=== PATIENT | male | born 1960 | race Caucasian/White ===

== ENCOUNTER 2024-03-17 18:33 | Emergency (ER) | payer MEDICARE, MEDICAID ==
[~2024-03-17] VITALS: Ht 175.3 cm; Wt 63.0 kg
[~2024-03-17 18:33] MED LIST: ACETAMINOPHEN500 MG PO; ATROPINE SU1 MG/1 M1 SUB-Q; DEXAMETHASO4 MG/1 ML IV; DILAUDID2 MG PO; EMEND150 MG IV; FLUOROURAC5 GM/100 M IV; HYDROCODON-ACE1 EA10 PO; IBUPROFEN600 MG PO; IRINOTECAN100 MG/5 M IV; LEUCOVORIN CAL200 MG IV; LIDODERM1 EACH TOP; MULTI VITAMIN1 EACH PO; MVASI25 MG/1 ML IV; OSTERA TABLET1 EACH PO; OXYCODON-ACETA1 EAC2 PO; STOOL SOFTENER100 MG PO; [UNRECOGNIZED DRUG - OTHER] IV
[2024-03-17] MEDS ORDERED: HYDROmorphone HCL 1 MG/ML SYR IV PRN (20:30)
[2024-03-17] MEDS ORDERED: ondansetron HCL 4 MG/2 ML VIAL IV ONE (20:30)
[2024-03-17] MEDS ORDERED: LACTATED RINGER'S 1,000 ML IV SCH (20:30)
[2024-03-17 20:46] LABS: BASOPHILS 0.5 % (0-2); HEMATOCRIT 31.8 % (35.0-50.0); HEMOGLOBIN 10.7 g/dL (12.0-18.0); MCH 31.6 (27-36); MCHC 33.7 g/dl (30-36); MCV 93.6 fl (81-99); MONOCYTES 7.8 % (0-12); NEUTROPHILS 86.7 % (39-80); PLATELET COUNT 239 K/uL (140-440); RBC 3.39 M/ul (4.3-5.7)
[2024-03-17 21:02] LABS: ALBUMIN/GLOBULIN RATIO 0.79 (1.1-2.4); ANION GAP 12.2 (7-21); BILIRUBIN, TOTAL 0.7 ng/dL (0.2-1.0); BUN/CREATININE RATIO 15.55 (6.0-28.6); CALCIUM 9.1 mg/dL (8.5-10.1); CREATININE, SERUM 0.9 mg/dL (0.70-1.30); POTASSIUM 4.2 mmol/L (3.5-5.1); PROTEIN, TOTAL 6.8 g/dL (6.4-8.2)
[2024-03-17 22:17] LABS: BILIRUBIN, URINE NEGATIVE (negative); BLOOD/HGB, URINE SMALL (Negative); KETONE, URINE NEGATIVE (Negative); LEUK ESTERASE, URINE NEGATIVE (negative); NITRITE, URINE NEGATIVE (negative); PH, URINE 6.5 (5-7)
[2024-03-17 22:25] LABS: EPITHELIAL CELLS, URINE SQUAMOUS 1+ /lpf (0-1+)
[2024-03-17 22:26] LABS: BACTERIA, URINE RARE /hpf (negative); CASTS, URINE NONE SEEN \\lpf; COLLECTION TYPE, URINE CLEAN CATCH; CRYSTALS, URINE NONE SEEN (0-1+); RED BLOOD CELLS, URINE 21-40 /hpf (0-5); REFLEX CULTURE, URINE No (No); WHITE BLOOD CELLS, URINE 0-1 /HPF (0-5)
[2024-03-17] MEDS ORDERED: OXYCODONE HCL5 MG PO (22:41)
[2024-03-17] MEDS ORDERED: OXYCODONE/ACETAMINOPHEN 1 TAB HOME.PACK PO ONE (22:45)
[2024-03-17 22:54] VITALS: BP 90/59
== END 2024-03-17 23:00 | disposition home or self-care (01) ==
LOC: ED 18:33
PROVIDERS: Internal Medicine
DX: G89.3 Neoplasm related pain (acute) (chronic) (principal); R10.11 Right upper quadrant pain; C61 Malignant neoplasm of prostate; C78.5 Secondary malignant neoplasm of large intestine and rectum; Z79.899 Other long term (current) drug therapy
CPT/HCPCS: 36415; 71045; 74177; 80053; 81001; 82553; 85025; 96375; 99284-25; J1170; J2405; J7121; Q9967

== ENCOUNTER 2024-11-16 11:34 | Emergency (ER) | payer MEDICARE, MEDICAID ==
[~2024-11-16] VITALS: Ht 175.3 cm; Wt 61.6 kg
[~2024-11-16 11:34] MED LIST changes: +FENTANYL1 EACH TD; +OXYCODONE HCL5 MG PO; +PANTOPRAZOLE SO40 MG PO
[2024-11-16] MEDS ORDERED: fentaNYL citrate 100 MCG/2 ML VIAL IM ONE (12:30)
[2024-11-16] MEDS ORDERED: SODIUM CHLORIDE 0.9% 1,000 ML IV PRN (13:15)
[2024-11-16] MEDS ORDERED: fentaNYL citrate 100 MCG/2 ML VIAL IV PRN (13:30)
[2024-11-16 13:54] LABS: PLATELET COUNT 148 K/uL (140-440)
[2024-11-16 13:57] LABS: BASOPHILS 0.5 % (0-2); HEMATOCRIT 27.2 % (35.0-50.0); HEMOGLOBIN 9.4 g/dL (12.0-18.0); LYMPHOCYTES 4.4 % (24-44); MCH 31.7 (27-36); MCHC 34.5 g/dl (30-36); MONOCYTES 8.2 % (0-12); NEUTROPHILS 84.9 % (39-80); RBC 2.96 M/ul (4.3-5.7); RDW 16.2 (10.5-15.0)
[2024-11-16 14:03] LABS: ALBUMIN 2.5 g/dL (3.4-5.0); ALBUMIN/GLOBULIN RATIO 0.68 (1.1-2.4); ANION GAP 12.3 (7-21); BUN/CREATININE RATIO 18.18 (6.0-28.6); CALCIUM 8.7 mg/dL (8.5-10.1); CREATININE, SERUM 0.99 mg/dL (0.70-1.30); POTASSIUM 4.3 mmol/L (3.5-5.1); PROTEIN, TOTAL 6.2 g/dL (6.4-8.2)
[2024-11-16 14:29] LABS: INR 1.15 (0.80-1.30); PROTIME 14.3 Sec (11.2-14.2)
[2024-11-16 16:06] VITALS: BP 100/59
== END 2024-11-16 16:06 | disposition short-term general hospital (02) ==
LOC: ED 11:34
PROVIDERS: Emergency Medicine
DX: S72.141A Displaced intertrochanteric fracture of right femur, initial encounter for closed fracture (principal); W19.XXXA Unspecified fall, initial encounter; C18.8 Malignant neoplasm of overlapping sites of colon; Z79.899 Other long term (current) drug therapy
CPT/HCPCS: 36415; 73502; 80053; 85025; 85610; 96374; 96376; 99284-25; J3010; J7030

== ENCOUNTER 2025-01-05 12:37 | Emergency (ER) | payer MEDICARE, OTHER ==
[~2025-01-05] VITALS: Ht 175.3 cm; Wt 55.0 kg
[2025-01-05] MEDS ORDERED: LORAZEPAM1 MG PO (12:50)
[2025-01-05] MEDS ORDERED: LACTATED RINGER'S 1,000 ML IV ONE (13:00)
[2025-01-05] MEDS ORDERED: ondansetron HCL 4 MG/2 ML VIAL IV PRN (13:00)
[2025-01-05] MEDS ORDERED: HYDROmorphone HCL 1 MG/ML SYR IV ONE ×2 (13:00→15:30)
[2025-01-05 16:35] VITALS: BP 102/62
--- NOTE | 2025-01-07 10:09 | CONS ---
[facility] [address], [place] [address] Signed DATE OF CONSULTATION: 01/05/2025 CONSULTING PHYSICIAN: Stcay Back MD REQUESTING PHYSICIAN: Dr. Damon. PROBLEM: Peristomal bleeding (significant). HISTORY OF PRESENT ILLNESS: This 64-year-old white man resides at [facility]. He has what sounds like end-stage prostate cancer, likely with metastatic disease to the liver. He had what sounds like pelvic outlet obstruction, requiring a loop diverting colostomy of the sigmoid colon performed at [facility]. He has had what sounds like protrusion of a portion of the loop colostomy over time which he is able to reduce somewhat. The patient is in the very end stages of his terminal illness. I was initially consulted by Dr. Damon as it was thought that he had a loop of bowel herniated alongside an end colostomy (not the case after all.) Additionally, he had profound bleeding noted at the assisted for which he was transferred to the hospital for further care. The patient tells me that he has had a protuberant portion of the colostomy before and he has reduced it himself. Forceful dislodgement of his ostomy bag today resulted in the bleeding that prompted his transfer to the ER. PHYSICAL EXAMINATION: Very thin white man who is alert and oriented and reasonably comfortable at this time. He is cachectic. Abdominal examination shows collateral venous flow in the region of the abdominal wall, likely concordant to portal hypertension and likely tumor burden of the liver, though I do not know that for certain. In the left lower abdomen, he has a loop sigmoid colostomy without any sign of small bowel. There is a peristomal hernia through which the loop protrudes. Gentle manipulation of the ostomy shows a bleeding site which was intermittently pulsatile in bleeding. This was secured with digital pressure and gauze. Extremities are wasting away. PROCEDURE: A small amount of silver nitrate was applied to the offending area on the likely proximal limb of the colostomy that had the bleeding site. This resulted in a lake eschar and controlled the bleeding somewhat. Additional control was afforded by several interrupted 3-0 Vicryl sutures applied to the area and the peristomal skin area. This secured hemostasis. Electronically Signed By: STACY BACK MD 01/07/25 1009 PATIENT NAME: PLACIDO JASSO CONSULTATION DATE OF : 56 REPORT #: [id number] PHYSICIAN: STACY BACK MD PCP: DONI WATSON PAC REPORT IS CONFIDENTIAL AND NOT TO BE RELEASED WITHOUT AUTHORIZATION [facility] [address], [place] [address] Signed After about an hour of waiting, re-examination showed it to be hemostatic and without sign of bleeding or other problem. ASSESSMENT: The patient likely has significant portal hypertension which makes even trivial excoriation of the ostomy itself prone to significant bleeding. The bleeding is now controlled. I advised the emergency room physician to discharge the patient with a small portion of QuikClot that his caretakers can use to apply a small portion to the site if it should bleed significantly again. It is not bleeding now and it is not foreseen to bleed though he is at increased risk for it quite obviously. The peristomal hernia would not be remedied by operation given his underlying medical status and certain hazard of bleeding and other problems. We bear in mind that his primary issue is that he is in the terminal phase of a terminal illness and all measures necessary to provide comfort are of the most importance at this time. I reviewed all this with Dr. Damon, who will facilitate procuring some QuikClot with application of the QuikClot by the personnel at the assisted should the need arise. If this is ineffective, of course, emergency room evaluation would be a consideration again. MD DU [place]/NONA /[id number] cc: Dr. Damon Copies: ~ Electronically Signed By: STACY BACK MD 01/07/25 1009 PATIENT NAME: PLACIDO JASSO CONSULTATION DATE OF : 56 REPORT #: [id number] PHYSICIAN: STACY BACK MD PCP: DONI WATSON PAC REPORT IS CONFIDENTIAL AND NOT TO BE RELEASED WITHOUT AUTHORIZATION
== END 2025-01-05 16:35 | disposition home or self-care (01) ==
LOC: ED 12:37
DX: K94.01 Colostomy hemorrhage (principal); C61 Malignant neoplasm of prostate; C78.5 Secondary malignant neoplasm of large intestine and rectum; C78.7 Secondary malignant neoplasm of liver and intrahepatic bile duct; C78.00 Secondary malignant neoplasm of unspecified lung; Z87.891 Personal history of nicotine dependence
CPT/HCPCS: 96361; 96374; 96375; 96376; 99283; J1171; J2405; J7121

== ENCOUNTER 2025-01-08 17:49 | Emergency (ER) | payer MEDICARE, OTHER ==
[~2025-01-08] VITALS: Ht 175.3 cm; Wt 66.5 kg
[~2025-01-08 17:49] MED LIST changes: +LORAZEPAM1 MG PO
--- OUTSIDE RECORDS SUMMARY | 2025-01-08 17:53 | XMS ---
PreManage Notification: PLACIDO JASSO Security Snaker Events No recent Security Events currently on file CRITERIA MET - [facility] [place] [facility] - 2 Visits in 30 Days CARE PROVIDERS Adolfo LAGUNA Pay Station Collector/Furniture Sales Associate Current PHONE: [phone] ERIN SONG Nurse Practitioner: Family Current PHONE: [phone] SERGIO GIBSON Internal Medicine Current PHONE: [phone] Deon has no Care Guidelines for this patient. E.D. VISIT COUNT (12 MO.) 5 [facility] TOTAL 5 NOTE: Visits indicate total known visits. ED/UCC VISIT TRACKING (12 MO.) 01/08/2025 17:49 [facility] [place] TYPE: Emergency COMPLAINT: - WEAKNESS 01/05/2025 12:37 [facility] [place] TYPE: Emergency COMPLAINT: - COLOSTOMY PROBLEM DIAGNOSES: - Colostomy hemorrhage - Malignant neoplasm of prostate - Personal history of nicotine dependence - Secondary malignant neoplasm of large intestine and rectum - Secondary malignant neoplasm of liver and intrahepatic bile duct - Secondary malignant neoplasm of unspecified lung 11/16/2024 11:34 [facility] [place] TYPE: Emergency COMPLAINT: - GROUND LEVEL FALL DIAGNOSES: - Displaced intertrochanteric fracture of right femur, initial encounter for closed fracture - Malignant neoplasm of overlapping sites of colon - Other equipment operator intermodal yard (current) drug therapy - Pain in right hip - Unspecified fall, initial encounter 09/29/2024 09:04 [facility] [place] TYPE: Emergency COMPLAINT: - ADOMINAL PAIN DIAGNOSES: - Esophagitis, unspecified without bleeding - Neoplasm related pain (acute) (chronic) - Other equipment operator intermodal yard (current) drug therapy - Personal history of nicotine dependence - Secondary malignant neoplasm of liver and intrahepatic bile duct - Secondary malignant neoplasm of unspecified lung - Upper abdominal pain, unspecified 03/17/2024 18:34 [facility] [place] TYPE: Emergency COMPLAINT: - ABDOMINAL PAIN DIAGNOSES: - Malignant neoplasm of prostate - Neoplasm related pain (acute) (chronic) - Other chcf (current) drug therapy - Right upper quadrant pain - Secondary malignant neoplasm of large intestine and rectum INPATIENT VISIT TRACKING (12 MO.) 11/16/2024 16:55 [facility] [place] TYPE: Medical Surgical DIAGNOSES: - Fracture of unspecified part of neck of right femur, initial encounter for closed fracture - Fracture of unspecified part of neck of right femur, initial encounter for closed fracture - Malignant neoplasm of prostate - HIP FX [email or web address]
[2025-01-08] MEDS ORDERED: FUROSEMIDE20 MG PO (18:02)
[2025-01-08] MEDS ORDERED: POTASSIUM CHLO10 ME2 PO (18:02)
[2025-01-08] MEDS ORDERED: DEXAMETHASONE4 MG PO (18:02)
[2025-01-08] MEDS ORDERED: BISACODYL10 MG PR (18:03)
[2025-01-08] MEDS ORDERED: ACETAMINOPHEN325 M1 PO (18:03)
[2025-01-08] MEDS ORDERED: ANTACID-ANTIGA355 ML PO (18:03)
[2025-01-08] MEDS ORDERED: OXYCODONE HCL 5 MG TAB PO ONE (18:15)
[2025-01-08 19:45] VITALS: BP 103/69
== END 2025-01-08 19:47 | disposition home or self-care (01) ==
LOC: ED 17:49
DX: K94.01 Colostomy hemorrhage (principal)
CPT/HCPCS: 99283; A9270